=== PATIENT | female | born 1990 | race Caucasian/White ===

== ENCOUNTER 2018-11-27 07:18 | Emergency (ER) | payer MEDICAID, SELFPAY ==
[2018-11-27 07:20] VITALS: BP 149/105; PULSE 88; RESP 16; TEMP 36.4; O2SAT 97; BMI 29.2
--- NOTE | 2018-11-27 07:37 | CT_ITS ---
STUDY: CT ABDOMEN AND PELVIS WITHOUT CONTRAST REASON FOR EXAM: Female, 28 years old. 1 1/2 week history of pelvic pain with abdominal pressure and nausea and vomiting. RADIATION DOSAGE (If Supplied By Facility): CTDIvol = ( 11.02 ) mGy, DLP = ( 583.74 ) mGycm TECHNIQUE: Transaxial images were obtained from the dome of the diaphragm to the symphysis pubis without oral contrast, and without intravenous contrast. Sagittal and coronal images were reconstructed. Individualized dose optimization techniques were used for this CT. COMPARISON: None. FINDINGS: The visualized lung bases are unremarkable. The visualized portions of the heart are within normal limits. Normal liver. Normal gallbladder and extrahepatic biliary system. There is a benign calcified granuloma of the spleen. Normal pancreas. Normal bilateral adrenal glands. Normal right kidney. Normal left kidney. Normal visualized stomach. Normal small intestine. Normal colon. The appendix is visualized and appears normal. Normal abdominal aorta. Normal inferior vena cava. Normal retroperitoneum. Normal urinary bladder. Normal abdominal wall. Normal osseous structures. CT/Abdomen/Pelvis without Cont IMPRESSION: Normal unenhanced CT of the abdomen and pelvis. Electronically Signed: Dawit Vora, at 8:27 EDT , Service support ,
--- NOTE | 2018-11-27 07:42 | ED.DCSUM_ITS ---
- ER Visit Summary Date of Service: 11/27/18 Chief Complaint: Left flank pain History of Present Illness: The patient is a 28 F with no primary care physician or silk spotter. She reports she has left flank pain that began today. States that it is an aching, sharp pain in the 7 to 10 hours and 5-10 currently. Is worsened with movement. She reports that she has been having dysuria and frequency for approximately the past week. Patient reports that her last menstrual. Was approximate 30 days ago. She began spotting yesterday. She is a G1, P1 and is taken 2 tests that were negative. However, she reports she is been nauseated and vomiting 1-2 times a day for the past week. There is been no blood or emesis. She denies fever. Physical Examination: Vitals: Stable. Afebrile. General: Well-nourished and well-developed. Head: Normocephalic atraumatic. Neck: Supple, no lymphadenopathy. No JVD. Nontender. Cardiovascular: Regular rate and rhythm. No murmurs. Respiratory: No respiratory distress. Clear to auscultation bilaterally. Abdominal: Soft, mild tenderness palpation left upper quadrant and moderate tenderness palpation left lower quadrant, nondistended, normal bowel sounds. No guarding, rebound, or peritoneal signs. Back: Nontender. Extremities: Nontender, no edema. Skin: Normal color, no rash. Neurologic: Alert and oriented ?3. Cranial nerves II through XII are intact. Normal strength and sensation. Psych: Normal affect. Test Results: CBC was normal. Chem-7 is normal. UA shows 25-50 white blood cells, red blood cells, leukocytes, nitrites. test is negative. CT flank. Emergency Department Course and Treatment: Patient had an IV placed. She was given a dose of Toradol IV. She was given a liter of normal saline. She is resting comfortably. When the patient's urine returned she is given a dose of Rocephin IV. Treatment Plan: The patient will be discharged with Keflex, Zofran, and Pyridium. Instructed to follow-up with Dr. Mcdermott in 1 week if not improving. Return to the emergency department for any worsening symptoms. Disposition: To home in improved and stable condition. Impression: 1. UTI. This note was generated with Upshotation software. It may contain incorrect words, spelling, and punctuation that were not noted in review of the chart prior to signing ED Disposition - Plan for ED Patient: Disposition: Home or Assisted Living Instructions: ED UTI Cystitis Female Prescriptions: Ondansetron [Zofran Odt] 4 mg PO Q8H PRN PRN #10 tablet PRN Reason: Nausea Cephalexin [Keflex] 500 mg PO Q12 #14 capsule Phenazopyridine HCl [Pyridium] 200 mg PO TID #10 tablet Referrals: Jesse Mcdermott MD [STAFF PHYSICIAN] - 1 Week if not improving
[2018-11-27 07:50] LABS: Mucous, Urine 0 SEEN /hpf (<or=2+)
[2018-11-27 07:52] LABS: Absolute Lymphocyte Count 2.34 X10^3/ul (0.83-4.51); Absolute Neutrophil Count 4.5 X10^3/uL (2.0-7.7); Basophil# 0.03 X10^3/uL; Basophil% 0.4 % (0-1); Color, Urine Yellow (Yellow); Eosinophil# 0.41 X10^3/uL; Eosinophils% 5.3 % (0-5); Glucose, Dipstick Normal (Normal); Hematocrit 41.4 % (37-47); Hemoglobin 14.1 g/dl (12.0-15.0); Ketone-Dipstick Negative (Negative); Leukocyte Esterase-Dipstick 500 /ul (Negative); Lymphocyte # 2.34 X10^3/ul (4.0); Lymphocyte % 30.2 % (19-41); Mean Corp Hgb Conc 34.1 g/gl (32-36); Mean Corpuscular Hgb 30.8 pg (27.0-32.0); Mean Corpuscular Volume 90.4 fL (81-99); Mean Platelet Vol. 8.7 fl (6.2-12.0); Monocyte# 0.49 X10^3/uL; Monocyte% 6.3 % (0-10); Neutrophil # 4.48 X10^3/uL (2.7-7.7); Neutrophil % 57.7 % (47-70); Nitrite-Dipstick Positive (Negative); Occult Blood-Urine 250 /ul (Negative); POSITIVE COUNT NO; POSITIVE DIFFERENTIAL NO; POSITIVE MORPHOLOGY NO; Platelet Count 197 K/mm3 (150-450); Protein-Dipstick 100 mg/dl (Negative); RBC Distribution Width CV 12.3 % (11.6-14.6); RBC Distribution Width SD 40.5 fl (35.1-43.9); Red Blood Count 4.58 M/mm3 (4.2-5.4); Specific Gravity, Urine 1.015 (1.002-1.030); Urine Bilirubin Dipstick Negative (Negative); Urine Clarity Sl. Cloudy (Clear); Urine Urobilinogen Normal (Normal); White Blood Count 7.8 K/mm3 (4.4-11.0)
[2018-11-27] MEDS: Ondansetron 4 MG/2 ML Vial IV (07:52)
[2018-11-27] MEDS: 0.9% Normal Saline 1,000 ML 250 ML IV (07:52)
[2018-11-27] MEDS: Ketorolac 30 MG/ML Syringe IV (07:52)
[2018-11-27 07:57] LABS: Bacteria 1+ /hpf (None Seen); Red Blood Cells-Urine 25-50 SEEN /hpf (0-5); Squamous Epithelial Cells - UA 5-10 SEEN /hpf (5-10); White Blood Cells 25-50 SEEN /hpf (0-5)
[2018-11-27 08:01] LABS: Internal QC Validated? YES +Cl - CLEAR BKGD; Pregnancy, Serum, hCG Quali. NEGATIVE Negative
[2018-11-27 08:03] LABS: Anion Gap 6 (5-15); BUN 11 mg/dL (7-18); BUN/Creat Ratio 11.2 RATIO (10-20); Calcium,Total 8.6 mg/dL (8.5-10.1); Chloride 105 mmol/L (98-107); Creatinine, Serum 0.98 mg/dL (0.55-1.02); EST Glomerular Filtration Rate 71 mL/min (>60); Est Glom Filt Rate - Afr Amer 86 mL/min (>60); Estimated Creatinine Clearance 70.07 ml/min; Glucose 84 mg/dL (74-106); Potassium 4.2 mmol/L (3.5-5.1); Sodium Level 139 mmol/L (136-145)
[2018-11-27] MEDS: Ceftriaxone 1 GM/50 ML BAG IV (08:32)
[2018-11-27 09:05] VITALS: BP 137/78; PULSE 79; RESP 16; O2SAT 98
== END 2018-11-27 09:06 | disposition home or self-care (01) ==
LOC: ED 08:00
PROVIDERS: Emergency Provider Emergency Medicine
DX: N39.0 Urinary tract infection, site not specified (principal)
CPT/HCPCS: 74176; 80048; 81001; 84703; 85025; 96361; 96365; 96374; 96375; 99283; J7030; J2405

== ENCOUNTER 2019-06-08 18:55 | Emergency (ER) | payer MEDICAID, SELFPAY ==
[2019-06-08 18:56] VITALS: BP 145/92; PULSE 84; RESP 17; TEMP 36.8; O2SAT 98; BMI 32.1
--- NOTE | 2019-06-08 19:29 | ED.DCSUM_ITS ---
- ER Visit Summary Date of Service: 06/08/19 Chief Complaint: Right fifth finger laceration History of Present Illness: The patient is a 28 F with laceration to right fifth finger. Patient was washing dishes and cut her finger on a broken glass. This occurred just prior to arrival. Her tetanus is up-to-date. No other injuries. Physical Examination: Vitals are stable. Patient is afebrile. Alert no acute distress. HEENT exam is unremarkable. Neck is supple. Lungs are clear and equal bilaterally. Heart is regular rate and rhythm. Extremities 3 cm flap laceration dorsal right fifth finger. Tendon function is intact. Normal cap refill. Active full range of motion. Skin is warm and dry. No focal neurologic deficit. Remainder of exam is unremarkable. Emergency Department Course and Treatment: Right hand x-ray shows no foreign lindsay dy. LET was applied. Wound was irrigated. Anesthetized with digital block. 6, 5-0 simple sutures were placed. Patient tolerated this well. Advised wound care instructions. Advised to follow-up with Dr. Vincent chemicals fermentation operator for no doctor. Advised return to ED if worsening complaints. Disposition: Discharge home Impression: Right hand laceration, laceration repair This note was generated with [employer] dictation software. It may contain incorrect words, spelling, and punctuation that were not noted in review of the chart prior to signing ED Disposition - Plan for ED Patient: Referrals: Care Physician,No Primary [Primary Care Provider] -
--- NOTE | 2019-06-08 19:31 | RAD_ITS ---
STUDY: X-RAY - RIGHT HAND REASON FOR EXAM: Female, 28 years old. Laceration fifth finger TECHNIQUE: 3 view(s) of the hand. COMPARISON: None. FINDINGS: Normal radiocarpal articulation. Normal distal radioulnar joint. Normal visualized carpal bones. Normal carpal articulations Normal carpometacarpal articulation of the thumb. Normal second through fifth carpometacarpal joints. Normal metacarpi. Normal metacarpophalangeal joint of the thumb. Normal interphalangeal joint of the thumb. Normal proximal and distal phalanges of the thumb. Normal metacarpophalangeal joints of the second through fifth fingers. Normal proximal and distal interphalangeal joints of the second through fifth fingers. Normal phalanges of the second through fifth fingers. The soft tissue structures are unremarkable. RAD/Hand Min 3 Views IMPRESSION: Normal x-ray examination of the hand. Electronically Signed: Leonardo Wade MD at 20:03 EST , Service support ,
[2019-06-08] MEDS: Lidocaine/Epi/Tetracaine 50 ML 1 APPLIC TOPICAL (19:37)
--- NOTE | 2019-06-08 20:11 | ED.DEP ---
ED Disposition - Plan for ED Patient: Instructions: LACERATION, Hand Referrals: Asad Vincent MD [STAFF PHYSICIAN] -
[2019-06-08 20:20] VITALS: RESP 16
== END 2019-06-08 20:23 | disposition home or self-care (01) ==
LOC: ED 19:22
PROVIDERS: Emergency Provider Emergency Medicine
DX: S61.216A Laceration without foreign body of right little finger without damage to nail, initial encounter (principal); W25.XXXA Contact with sharp glass, initial encounter; Y93.9 Activity, unspecified; Y92.9 Unspecified place or not applicable
CPT/HCPCS: 12002; 73130; 99284